=== PATIENT | female | born 1985 | race Caucasian/White ===

== ENCOUNTER 2023-01-14 19:36 | Emergency (ER) | payer MEDICAID ==
[~2023-01-14] VITALS: Ht 162.6 cm; Wt 73.0 kg
[2023-01-14 19:42] VITALS: O2SAT 99
[2023-01-14] MEDS ORDERED: HYDRALAZINE 20MG/ML VIAL IV ONE (20:45)
[2023-01-14 20:56] LABS: BASOPHILS % 0.7 % (0.0-2.0); EOSINOPHILS % 1.5 % (0.0-5.0); HEMOGLOBIN. 12.2 g/dL (12.0-16.0); LYMPHOCYTES % 26.9 % (20.0-50.0); MEAN CORPUSCULAR HEMOGLOBIN 25.4 pg (28.0-32.0); MEAN CORPUSCULAR VOLUME 81.1 fL (81.0-99.0); MEAN PLATELET VOLUME 10.1 fl (7.4-10.4); MONOCYTES % 7.6 % (2.0-8.0); NEUTROPHILS % 63.3 % (40.0-76.0); PLATELET 331 x1000/uL (130-400); RED BLOOD CELL COUNT 4.81 mill/uL (4.2-5.4); RED CELL DISTRIBUTION WIDTH 16.5 % (11.6-14.6)
[2023-01-14 21:08] LABS: CHLORIDE 104 mEq/L (98-107)
[2023-01-14 22:30] VITALS: BP 175/97; PULSE 81; RESP 18; TEMP 98.2
== END 2023-01-14 23:20 | disposition home or self-care (01) ==
LOC: ER 19:36
DX: I10 Essential (primary) hypertension (principal); R07.89 Other chest pain; E78.00 Pure hypercholesterolemia, unspecified
CPT/HCPCS: 99285; 96374; 70450; 71045; 80053; 85025; 84484; 36415; 93005; J0360